=== PATIENT | male | born 1985 | race Caucasian/White ===

== ENCOUNTER 2021-12-20 08:07 | Outpatient (CLI) | payer BC, SELFPAY ==
[2021-12-20 11:35] LABS: Albumin* 4.2 g/dL (3.3-5.0); Chloride* 103 mmol/L (96-114); Sodium* 137 mmol/L (135-149)
[2021-12-20 11:36] LABS: Potassium* 4.4 mmol/L (3.6-5.1)
[2021-12-20 11:37] LABS: Cholesterol* 229 mg/dL (90-199); Creatinine* 0.9 mg/dL (0.5-1.5)
[2021-12-20 11:38] LABS: Alanine Aminotransferase* 59 U/L (4-50); Alkaline Phosphatase* 68 U/L (40-150); Aspartate Amino Transferase* 40 U/L (12-35); Bilirubin Total* 1.1 mg/dL (0.1-1.5); Blood Urea Nitrogen* 19 mg/dL (5-24); Calcium* 9.2 mg/dL (8.4-10.6); Carbon Dioxide* 28 mmol/L (20-32); Estimated Glomerular Filt Rate 113 ml/min; Glucose* 95 mg/dL (60-115); Total Protein* 6.8 g/dL (6.0-8.3); Triglycerides* 301 mg/dL (40-149)
[2021-12-20 11:39] LABS: HDL Cholesterol* 40 mg/dL (>=40); LDL Cholesterol Calculated 129 mg/dL (<100)
== END 2021-12-20 08:08 | disposition home or self-care (01) ==
PROVIDERS: PCP Family Medicine; Visit Provider Family Medicine
DX: E78.5 Hyperlipidemia, unspecified (principal)
CPT/HCPCS: 80053; 80061

== ENCOUNTER 2023-01-16 08:01 | Outpatient (CLI) | payer BC, SELFPAY | END 2023-01-16 08:02 | disposition home or self-care (01) | LOC: NFLDREF 01-19 10:25 | PROVIDERS: PCP Family Medicine; Referring Provider Family Medicine; Visit Provider Family Medicine | DX: Z00.00 Encounter for general adult medical examination without abnormal findings (principal); E78.5 Hyperlipidemia, unspecified; I10 Essential (primary) hypertension; E66.9 Obesity, unspecified | CPT/HCPCS: 80053; 80061 ==

== ENCOUNTER 2024-03-11 08:15 | Outpatient (CLI) | payer BC, SELFPAY ==
--- OUTSIDE RECORDS SUMMARY | 2024-03-15 15:27 | XMS_ITS | Clinical Summary ---
Author Organization [employer] [facility] Address [place], [place] [address] Care Team Providers Care Production Expediter Name Role Phone Bill Solano MD Primary Care Provider Allergies Active Allergy Reactions Criticality Noted Date Comments Cefaclor Hives 11/25/2010 Sulfa (Sulfonamide Antibiotics) Hives 08/2010 Medications Medication Sig Dispensed Refills Start Date End Date Status trimethoprim-polymyxin b (POLYTRIM) ophthalmic solution 1 Drop every 4 hours. 10 mL 0 11/25/2010 Active Active Problems No known active problems Social History Tobacco Use Types Packs/Day Years Used Date Smoking Tobacco: Every Day Cigarettes 1 10 Smokeless Tobacco: Never Alcohol Use Standard Drinks/Week Comments Yes 0 (1 standard drink = 0.6 oz pur e alcohol) occasional Sex and Gender Information Value Date Recorded Sex Assigned at Not on file Gender Identity Not on file Sexual Orientation Not on file Obstetrics History Last Filed Vital Signs Vital Sign Reading Time Taken Comments Blood Pressure 144/80 11/25/2010 6:25 PM CDT Pulse 70 11/25/2010 6:25 PM CDT Temperature 36.7 C (98 F) 11/25/2010 6:25 PM CDT Respiratory Rate - - Oxygen Saturation 100% 11/25/2010 6:25 PM CDT Inhaled Oxygen Concentration - - Weight 103.3 kg (227 lb 12.8 oz) 11/25/2010 6:25 PM CDT Height - - Body Mass Index - - Plan of Treatment Health Maintenance Due Date Last Done Comments Tdap 11/10/1995 Depression screening for age 12+ 1996 HIV for age 15-65 11/10/1999 BMI (ht and wt on same day) for age 18+ 2002 Hepatitis C screening for ag e 18-79 2002 Tetanus booster 2004 Lipids for age 35-44 11/10/2019 COVID-19 vaccine series (2023- season) 2023 Influenza for age 9-49 12/23/2023 Pneumococcal series for age 6-64 Aged Out No longer eligible based on patient's age to complete this topic Care Teams Production Expediter Relationship Specialty Start Date End Date Bill Solano MD [address] [place] [address] PCP - General 07/26/06
== END 2024-03-11 08:16 | disposition home or self-care (01) ==
LOC: NFLDREF 03-15 15:25
PROVIDERS: PCP Family Medicine; Referring Provider Family Medicine; Visit Provider Family Medicine
DX: E78.5 Hyperlipidemia, unspecified (principal); I10 Essential (primary) hypertension
CPT/HCPCS: 80053; 80061

== ENCOUNTER 2024-11-19 10:22 | Emergency (ER) | payer OTHER, BC, SELFPAY ==
--- OUTSIDE RECORDS SUMMARY | 2024-11-19 10:25 | XMS_ITS | Clinical Summary ---
Author Organization 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 Gender Identity Not on file Sexual Orientation [...] Health Maintenance Due Date Last Done Comments Tetanus booster 11/10/1995 Depression screening for age 12+ 1996 HIV for age 15-65 11/10/1999 BMI (ht and wt on same day) for age 18+ 2002 Hepatitis C screening for ag e 18-79 2002 Hepatitis B series for 19+ ( 1 of 3 - 19+ 3-dose series) 11/10/2003 Lipids for age 35-44 11/10/2019 COVID-19 vaccine series ( - 2023- season) 2023 Influenza Vaccine (#1) 2024 Pneumococcal series for age 6-49 Aged Out No longer eligible based on patient's age to complete this topic Insurance Care Teams Railroad Conductor Relationship Specialty Start Date End Date Bill Solano MD [address] [place] [address] PCP - General 07/26/06
[2024-11-19 10:28] VITALS: BP 152/93; PULSE 64; RESP 18; TEMP 36.6; O2SAT 97; BMI 37.4
--- NOTE | 2024-11-19 10:40 | ED_ITS ---
HPI - General Adult General Date Seen: 11/19/24 Chief complaint: Insect Bite Stated complaint: got stung by a wasp on left eye Time Seen by Provider: 11/19/24 10:40 Source: patient Mode of arrival: ambulatory Limitations: no limitations History of Present Illness HPI narrative: Patient is a 39-year-old male presenting to the emergency department after getting stung to the left eyebrow by a wasp. He states he was at work walking into a home and felt himself get stung by a wasp to his left eyebrow. He then saw the wasp and swatted it away. This happened about 30 minutes prior to arriv al. States he has been stung by wasps several times before and usually is gets a small dime shaped area of swelling. Has been stung in the year before which caused more significant swelling but has never had any associated chest pain, shortness of breath, abdominal pain, nausea, lightheadedness, dizziness, diffuse rash. Denies although symptoms at this time also. Is concerned because there is quite a bit swelling to his left upper eyelid and eyebrow. States feels like there is pressure on his eye from the swelling. Has not taken any medications yet for it. Related Data Previous Rx's ?Medication ?Instructions ?Recorded amlodipine 5 mg tablet 5 mg PO QDAY #90 tabs lisinopril 20 mg tablet 20 mg PO QDAY #90 tabs 03/13 metoprolol succinate 50 mg 50 mg PO QDAY #90 tabs 02/22 05/16 tablet,extended release 24 hr sildenafil 50 mg tablet 50 - 100 mg (1 - 2 x 50 mg) PO 03/13/24 QDAY PRN sexual activity #30 tabs Allergies Allergy/AdvReac Type Severity Reaction Status Date / Time Cephalosporins Allergy Unknown Unknown Uncoded 03/13/24 15:26 Penicillin v Allergy Unknown Unknown Uncoded 03/13/24 15:26 Sulfa drugs Allergy Unknown Unknown Uncoded 03/13/24 15:26 Review of Systems Status of ROS: Reports: 10 or more systems reviewed and unremarkable except as noted in History and below [facility] Medical History Cyst Social History What is your current living situation?: I presently have a place to live Problems where you live: no known problems In the past 12 months, utilities in danger of being shut off: no In past 12 months, lack of transportation kept you from medical appts, meetings, work, or getting things needed for daily living: no In the past 12 mos, have been you worried that your food would run out before you had money to buy more?: never true In the past 12 mos, the food you bought just didn't last and you didn't have money to buy more?: never true Smoking Status: Never smoker How often does anyone, including family, friends and others, physically hurt you : never How often does anyone, including family, friends and others, insult or talk down to you: never How often does anyone, including family, friends and others, threaten you with harm: never How often does anyone, including family, friends and others, scream or curse at you: never Exam Narrative: Exam Narrative: Const: Well-nourished, Well-developed, in mild distress Eyes: PERRL, no conjunctival injection, swelling noted to left upper eyelid. HENT: Atraumatic external nose and ears. Moist mucous membranes. Neck: Symmetric, trachea midline, No thyromegaly. CVS: RRR, No murmurs or gallops. Peripheral pulses 2+ and equal in all extremities RESP: Unlabored respiratory effort. Clear to auscultation bilaterally. GI: Nontender/Nondistended, No rebound or guarding. MSK:Extremities w/o deformity, Normal Active ROM Skin: Warm, Dry. No rashes or lesions. Neuro: Normal Muscle tone, No focal neurological deficits. Psych: Awake, Alert, & Oriented x3. Appropriate mood and affect. Const: Vital Signs, click to edit/add: Vital Signs - 24 hr 11/19/24 10:28 Temperature 98 F Pulse Rate [Pulse Oximeter] 64 Respiratory Rate 18 Blood Pressure [Ri ght Upper Arm] 152/93 H Pulse Oximetry 97 Oxygen Delivery Me thod Room Air Course Vital Signs Vital signs: Initial Vital Signs Temperature 98 F 11/19/24 10:28 Temperature Source Temporal Artery Scan 11/19/24 10:28 Pulse Rate 64 11/19/24 10:28 Respiratory Rate 18 11/19/24 10:28 Blood Pressure 152/93 H 11/19/24 10:28 Blood Pressure Mean 112 H 11/19/24 10:28 Pulse Oximetry 97 11/19/24 10:28 Oxygen Delivery Method Room Air 11/19/24 10:28 Vital Signs Temperature 98 F 11/19/24 10:28 Pulse Rate 64 11/19/24 10:28 Respiratory Rate 18 11/19/24 10:28 Blood Pressure 152/93 H 11/19/24 10:28 Pulse Oximetry 97 11/19/24 10:28 Oxygen Delivery Method Room Air 11/19/24 10:28 Temperature 98 F 11/19/24 10:28 Pulse Rate 64 11/19/24 10:28 Respiratory Rate 18 11/19/24 10:28 Blood Pressure 152/93 H 11/19/24 10:28 Pulse Oximetry 97 11/19/24 10:28 Oxygen Delivery Method Room Air 11/19/24 10:28 Medications Administered Medications: Discontinued Medications Generic Name Dose Route Start Last Admin Trade Name Freq PRN Reason Stop Dose Admin Diphenhydramine HCl 50 mg 11/19/24 10:40 11/19/24 10:56 Diphenhydramine 25 Mg Capsule PO 11/19/24 10:41 50 mg ONCE ONE Administration Famotidine 20 mg 11/19/24 10:40 11/19/24 10:56 Famotidine 20 Mg Tablet PO 11/19/24 10:41 20 mg ONCE ONE Administration Medical Decision Making [facility] Narrative Medical decision making narrative: Patient is a 39-year-old male presenting to emergency department after being stung by a wasp. No signs of anaphylaxis at this time. Vision is normal. We will monitor him and given some Benadryl and Pepcid to bring the swelling down and make sure that swelling around the eye does not get worse. Swelling improved with the medication. No signs of anaphylaxis after a observation. He is safe for discharge. He is agreeable to this plan. Discharge Plan Discharge Clinical Impression: Accidental wasp sting Patient Disposition: Home, Self-Care Condition: Improved Instructions: Insect Bite or Sting (ED) Additional Instructions: Take Benadryl for the swelling. Use ibuprofen and Tylenol for any pain. Return to emergency department for new or worsening symptoms. Prescriptions: No Action amlodipine 5 mg tablet 5 mg PO QDAY Qty: 90 3RF lisinopril 20 mg tablet 20 mg PO QDAY Qty: 90 3RF metoprolol succinate 50 mg tablet extended release 24 hr 50 mg PO QDAY Qty: 90 3RF sildenafil 50 mg tablet 50 - 100 mg PO QDAY PRN (Reason: sexual activity) Qty: 30 5RF Rx Instructions: administer 30 minutes to 4 hours before activity Follow Up/Referrals: Ashu Spangler MD [Primary Care Provider, Family Practice] Stand Alone Forms: [email or web address] Info Instructions
[2024-11-19] MEDS: FAMOTIDINE 20 MG TABLET PO (10:56)
== END 2024-11-19 12:38 | disposition home or self-care (01) ==
PROVIDERS: Emergency Provider Student in an Organized Health Care Education/Training Program; PCP Family Medicine
DX: T63.461A Toxic effect of venom of wasps, accidental (unintentional), initial encounter (principal)
CPT/HCPCS: 99283; A9270